=== PATIENT | female | born 1960 | race Caucasian/White ===

== ENCOUNTER 2017-01-05 10:50 | Emergency (ER) | payer BC ==
--- NOTE | 2017-01-05 13:38 | UC ---
Respiratory Complaint HPI - HPI Summary HPI Summary: Cough, sinus congestion and rib pain from coughing for the past week, denies any fever - History of Current Complaint Chief Complaint: UCRespiratory Stated Complaint: SINUS COMPLAINT Time Seen by Provider: 01/05/17 13:23 Hx Obtained From: Patient Hx Last Menstrual Period: n/a ?: No Onset/Duration: Sudden Onset, Lasting Days Timing: Constant Severity Initially: Moderate Severity Currently: Moderate Character: Cough: Nonproductive Aggravating Factors: Deep Breaths, Recumbent Position Alleviating Factors: Nothing Associated Signs And Symptoms: Positive: URI, Nasal Congestion, Sinus Discomfort - Risk Factors Pulmonary Embolism Risk Factors: Negative Cardiac Risk Factors: Negative Pseudomonas Risk Factors: Negative Tuberculosis Risk Factors: Negative - Allergies/Home Medications Allergies/Adverse Reactions: Allergies Allergy/AdvReac Type Severity Reaction Status Date / Time No Known Allergies Allergy Verified 01/05/17 13:21 PMH/Surg Hx/FS Hx/Imm Hx Previously Healthy: Yes - Surgical History Surgical History: Yes Surgery Procedure, Year, and Place: and C January 2012 - Family History Known Family History: Negative: Cardiac Disease, Hypertension - Social History Alcohol Use: None Substance Use Type: None Smoking Status (MU): Never Smoked Tobacco Review of Systems Constitutional: Negative Skin: Negative Eyes: Negative ENT: Ear Ache, Nasal Discharge Respiratory: Cough Cardiovascular: Negative Gastrointestinal: Negative Genitourinary: Negative Neurovascular: Negative Musculoskeletal: Arthralgia, Myalgia Neurological: Negative Psychological: Negative All Other Systems Reviewed And Are Negative: Yes Physical Exam Triage Information Reviewed: Yes Appearance: Well-Nourished, Ill-Appearing, Pain Distress Vital Signs: Initial Vital Signs Temp 97.3 F 01/05/17 13:15 Pulse 87 01/05/17 13:15 Resp 15 01/05/17 13:15 BP 152/92 01/05/17 13:15 Pulse Ox 100 01/05/17 13:15 Vital Signs Reviewed: Yes Eye Exam: Normal Eyes: Positive: Conjunctiva Clear ENT: Positive: Pharyngeal erythema, Nasal congestion, Nasal drainage, TMs normal , Muffled/hoarse voice Dental Exam: Normal Neck exam: Normal Neck: Positive: Supple, Nontender, No Lymphadenopathy Respiratory: Positive: Normal breath sounds, No respiratory distress, No accessory muscle use, Wheezing, Inspiration, Other: - rib char filter tank tender on palpation Cardiovascular Exam: Normal Abdominal Exam: Normal Abdomen Description: Positive: Nontender, No Organomegaly, Soft Bowel Sounds: Positive: Present Musculoskeletal Exam: Normal Neurological Exam: Normal Neurological: Positive: Alert, Muscle Tone Normal Psychological Exam: Normal Skin Exam: Normal UC Diagnostic Evaluation - Laboratory O2 Sat by Pulse Oximetry: 100 Respiratory Course/Dx - Course Course Of Treatment: hx obtained, exam performed, meds reviewed, treated for rhinosinusitis and bronchospasm - Differential Dx/Diagnosis Differential Diagnosis/HQI/PQRI: Aspiration, Asthma, Bronchitis, Influenza, Laryngitis, Pulmonary Embolism, SARS, Sinusitis Provider Diagnoses: Rhinosinutitis. bronchospasm Discharge - Discharge Plan Condition: Stable Disposition: HOME Prescriptions: Albuterol HFA INHALER* [Ventolin HFA Inhaler*] 2 puff INH Q4H PRN #1 mdi PRN Reason: Cough guaiFENesin/CODIEN 100MG-10MG* [Robitussin AC 100Mg-10Mg*] 10 ml PO BID #100 ml MDD 20 ml predniSONE TAB* [Deltasone TAB*] 40 mg PO DAILY #14 tab Patient Education Materials: Rhinosinusitis (ED), Bronchospasm (ED) Additional Instructions: 1. Use the medication as prescribed 2. you can use the cough syrup 1-2 tsp at a time. 3. Use the spacer for better administration of medication 4. I recommend a daily allergy medication if the warmer weather starts to cause more allergy type symtpoms.
== END 2017-01-05 13:43 | disposition home or self-care (01) ==
LOC: UCCORT 10:50
DX: J32.9 Chronic sinusitis, unspecified (principal); J98.01 Acute bronchospasm
CPT/HCPCS: 99202; G0463

== ENCOUNTER 2019-09-28 10:39 | Emergency (ER) | payer BC ==
[2019-09-28 12:18] VITALS: BP 141/88
--- NOTE | 2019-09-28 12:32 | UC ---
Eye Complaint HPI - HPI Summary HPI Summary: 58-year-old female presents with 2 week history of sinus pain and pressure, nasal congestion, postnasal drip, bilateral ear fullness, and occasional dry nonproductive cough. States yesterday she started developing some left eye watering and itchiness. This morning she woke up with the left eye red, itching , and crusted shut. Has been noticing a small amount of purulent drainage from the left eye. States right eye is now starting to become watery and itchy as well. She has been taking [id number] Mucinex with minimal relief in symptoms. Denies fever, chills, sore throat, chest pain, shortness of breath, abdominal pain, nausea, or vomiting. - History of Current Complaint Chief Complaint: UCEye Stated Complaint: LEFT EYE Time Seen by Provider: 09/28/19 12:26 Hx Obtained From: Patient Hx Last Menstrual Period: n/a Pain Intensity: 0 - Allergies/Home Medications Allergies/Adverse Reactions: Allergies Allergy/AdvReac Type Severity Reaction Status Date / Time hydrochlorothiazide Allergy Rash Verified 09/28/19 12:18 Home Medications: Home Medications Metoprolol Succinate XL TAB* [Toprol XL TAB*] 1 tab PO DAILY 09/28/19 [History Confirmed 09/28/19] amLODIPine TAB* [Norvasc 5 mg TAB*] 5 mg PO DAILY 09/28/19 [History Confirmed ] PMH/Surg Hx/FS Hx/Imm Hx Cardiovascular History: Hypertension - Surgical History Surgical History: Yes Surgery Procedure, Year, and Place: D and C January 2012 - Family History Known Family History: Positive: Non-Contributory - Social History Occupation: Employed Full-time Lives: With Family Alcohol Use: None Substance Use Type: None Smoking Status (MU): Never Smoked Tobacco Review of Systems All Other Systems Reviewed And Are Negative: Yes Constitutional: Negative: Fever, Chills Eyes: Positive: Drainage, Eye Redness ENT: Positive: Nasal Discharge, Sinus Congestion, Sinus Pain/Tenderness. Negative: Sore Throat, Ear Ache Respiratory: Positive: Cough. Negative: Shortness Of Breath Cardiovascular: Negative: Chest Pain Gastrointestinal: Negative: Abdominal Pain, Vomiting, Diarrhea, Nausea Genitourinary: Positive: Negative Musculoskeletal: Positive: Negative Neurological: Positive: Negative Is Patient Immunocompromised?: No Physical Exam - Summary Physical Exam Summary: GENERAL APPEARANCE: Alert and cooperative adult female who appears to be in no acute distress. EYES: Right conjunctiva clear without drainage. Left conjunctival erythema without drainage. PERRL, EOM intact. Vision is grossly intact. EARS: External auditory canals and tympanic membranes clear, hearing grossly intact. NOSE: Moderate nasal congestion. No nasal discharge. Maxillary and frontal sinus tenderness with palpation. THROAT: Pharyngeal cobblestoning. No tonsilar inflammation, swelling, exudate, or lesions. Uvula midline. NECK: Neck supple, non-tender without lymphadenopathy. CARDIAC: Normal S1 and S2. No S3, S4 or murmurs. Rhythm is regular. There is no peripheral edema, cyanosis or pallor. Extremities are warm and well perfused. Capillary refill is less than 2 seconds. Peripheral pulses intact. LUNGS: Clear to auscultation without rales, rhonchi, wheezing or diminished breath sounds. ABDOMEN: Positive bowel sounds. Soft, nondistended, nontender. No guarding or rebound. No masses or hepatosplenomegally. MUSKULOSKELETAL: ROM intact to all extremities. No joint erythema or tenderness. Normal muscular development. Normal gait. SKIN: Skin normal color, texture and turgor with no lesions or eruptions. Triage Information Reviewed: Yes Vital Signs: Initial Vital Signs Temp 98.5 F 09/28/19 12:14 Pulse 76 09/28/19 12:14 Resp 18 09/28/19 12:14 BP 141/88 09/28/19 12:14 Pulse Ox 98 09/28/19 12:14 Vital Signs Reviewed: Yes Eye Complaint Course/Dx - Course Course Of Treatment: 58-year-old female presents with 2 week history of sinus pain and pressure, nasal congestion, postnasal drip, bilateral ear fullness, and occasional dry nonproductive cough. States yesterday she started developing some left eye watering and itchiness. This morning she woke up with the left eye red, itching , and crusted shut. Has been noticing a small amount of purulent drainage from the left eye. States right eye is now starting to become watery and itchy as well. She has been taking [id number] Mucinex with minimal relief in symptoms. Denies fever, chills, sore throat, chest pain, shortness of breath, abdominal pain, nausea, or vomiting. Afebrile. Hypertensive otherwise vital signs stable. Patient hand left conjunctival erythema without drainage, moderate nasal congestion, maxillary and frontal sinus tenderness, pharyngeal cobblestoning without tonsillar swelling or exudate, no cervical lymphadenopathy , clear bilateral breath sounds, and otherwise unremarkable exam. Discussed with patient that considering the duration of her symptoms that she likely has a bacterial sinusitis with a secondary conjunctivitis. We'll start her on Augmentin 875 mg twice a day 10 days as well as symptomatic treatment for the sinus infection. She is to follow-up with her primary care provider in 3-5 days if symptoms are not improving. Anticipatory guidance and warning symptoms were reviewed with the patient. Verbalizes understanding and agrees with plan of care. - Differential Dx/Diagnosis Differential Diagnosis/HQI/PQRI: Conjunctivitis, Corneal Abrasion, Foreign Body Provider Diagnosis: Acute sinusitis, Conjunctivitis, left eye Discharge ED - Sign-Out/Discharge Documenting (check all that apply): Patient Departure All imaging exams completed and their final reports reviewed: No Studies - Discharge Plan Condition: Stable Disposition: HOME Prescriptions: Amoxicillin/Clavulanate TAB* [Augmentin TAB 875*] 875 mg PO BID 10 Days #20 tab Fluticasone NASAL SPRAY 50MCG* [Flonase NASAL SPRAY 50MCG*] 2 spray BOTH NARES DAILY #1 btl Patient Education Materials: Sinusitis (ED), Conjunctivitis (ED) Referrals: Viraj JAMES,Trevon Borjas [Primary Care Provider] - 3 Days Additional Instructions: Your history and exam are consistent with a sinus infection. Considering the duration of your symptoms and the new onset of eye redness, itching, and drainage we will start you on an antibiotic to treat the infection. Start Augmentin 875 mg 1 tablet twice a day for 10 days. Take with food to avoid upset stomach. Be sure to complete the entire course even if feeling better. Drink plenty of fluids to avoid dehydration especially if you are running any fever. Use a saline rinse kit such as Neti Pot or NeilMed at least twice a day to help thin secretions and promote drainage of the sinuses. Use fluticasone (Flonase) nasal spray 2 sprays each nostril once daily. Use an over the counter decongestant such as Sudafed according to directions to help with congestion. Take over the counter acetaminophen (Tylenol) or ibuprofen (Advil, Motrin) according to directions as needed for pain or fever. To avoid reinfection or spreading the eye infection: * Use washcloths and towels once then launder. * Do not share washcloths or towels with others. * Change your pillow case each morning until you have finished treatment. * You should throw out any eye makeup, especially mascara, and use a new one once you have finished treatment. Follow up here or with your primary care provider in 3-5 days if no improvement. Seek immediate medical attention in the emergency room if you develop fever greater than 100.5 F, have pain or swelling of the eye, visual disturbances, loss of vision, have chest pain, difficulty breathing, or have any worsening of symptoms. - Billing Disposition and Condition Condition: STABLE Disposition: Home
== END 2019-09-28 12:57 | disposition home or self-care (01) ==
LOC: UCCORT 10:39
DX: J01.90 Acute sinusitis, unspecified (principal); H10.9 Unspecified conjunctivitis; I10 Essential (primary) hypertension; Z88.8 Allergy status to other drugs, medicaments and biological substances; Z79.899 Other long term (current) drug therapy
CPT/HCPCS: 99212; G0463